=== PATIENT | male | born 1990 | race Caucasian/White ===

== ENCOUNTER 2020-05-08 19:54 | Emergency (ER) | payer OTHER ==
[~2020-05-08] VITALS: Ht 167.6 cm; Wt 97.5 kg
[2020-05-08] MEDS ORDERED: IV NORMAL SALINE 1000 ML BAG IV ONE ×2 (20:00→21:00)
[2020-05-08] MEDS ORDERED: HYDROMORPHONE 1 MG/1 ML DISP.SYRIN IV ONE ×5 (20:00→23:30)
[2020-05-08] MEDS ORDERED: ONDANSETRON 4 MG/2 ML VIAL IV ONE ×2 (20:00→23:30)
[2020-05-08] MEDS ORDERED: FAMOTIDINE. 20 MG/2 ML VIAL IV ONE ×2 (20:00→20:06)
[2020-05-08] MEDS ORDERED: ONDANSETRON 4 MG/2 ML VIAL ONE ×2 (20:06→23:32)
[2020-05-08] MEDS ORDERED: HYDROMORPHONE 1 MG/1 ML DISP.SYRIN ONE ×5 (20:06→23:30)
--- NOTE | 2020-05-08 20:10 | NUR ---
Patient BIB [facility] for c/o "constipation" no BM x 2 days. Patient A/Ox4. Speech is clear, speaks in complete sentences. Denies any GILES, no suspected acute neuro deficits at this time. Respiratory even and unlabored, no cough no sob. No cardiovascular distress noted, all pulses palpable, denies cp or palpitations. Patient c/o right sided abdominal pain, 10/10 localized, non-radiating. Patient retching during emetic episodes, denies any diarrhea. Denies any distress, denies hematuria or any dysuria. Patient in bed at lowest position, sr upx2, call light within reach. Fall and safety precautions implemented per protocol. Will continue to observe and monitor patient.
[2020-05-08 20:11] LABS: BASOPHILS % (AUTO) 0.2 % (0.0-2.0); EOSINOPHILS # (AUTO) 0.1 K/uL (0.0-0.7); EOSINOPHILS % (AUTO) 0.4 % (0.0-7.0); HEMOGLOBIN 16.4 g/dL (12.5-16.3); LYMPHOCYTES # (AUTO) 1.5 K/uL (20.0-40.0); LYMPHOCYTES % (AUTO) 6.8 % (20.5-51.5); MEAN CORPUSCULAR HEMOGLOBIN 27.2 uug (23.8-33.4); MEAN CORPUSCULAR HGB CONC 34 g/dL (32.5-36.3); MEAN CORPUSCULAR VOLUME 81.1 fL (73.0-96.2); MONOCYTES # (AUTO) 0.6 K/uL (2.0-10.0); MONOCYTES % (AUTO) 2.6 % (0.0-11.0); NEUTROPHILS # (AUTO) 20.2 K/uL (1.8-8.9); PLATELET COUNT (AUTO) 315 K/uL (152-348); RED BLOOD CELL COUNT(AUTO) 6.04 MIL/uL (4.06-5.63); WHITE BLOOD COUNT (AUTO) 22.5 K/uL (3.6-10.2)
[2020-05-08 20:18] LABS: POTASSIUM 3.7 mmol/L (3.5-5.1)
[2020-05-08 20:25] LABS: BILIRUBIN,DIRECT 0.3 mg/dL (0.0-0.2); BILIRUBIN,TOTAL 1.2 mg/dL (0.2-1.0); TOTAL PROTEIN, SERUM 8.6 g/dL (6.4-8.2)
[2020-05-08] MEDS ORDERED: IOPAMIDOL 15 ML VIAL IT ONE (20:44)
[2020-05-08] MEDS ORDERED: SWABABLE VALVE TRANSFER SET EA MC ONE (20:44)
[2020-05-08] MEDS ORDERED: IV NORMAL SALINE 250 ML IV ONE (20:44)
[2020-05-08] MEDS ORDERED: IOHEXOL 300MG/ML 100 ML INFUS..BTL ONE (20:45)
--- NOTE | 2020-05-08 20:47 | NUR ---
Patient transported to CT in stable condition.
--- NOTE | 2020-05-08 20:48 | NUR ---
Note undone in EDM - 05/08/20 at 2118 by LOPEZ Patient BIB [facility] for c/o "constipation" no BM x 2 days. Patient A/Ox4. Speech is clear, speaks in complete sentences. Denies any GILES, no suspected acute neuro deficits at this time. Respiratory even and unlabored, no cough no sob. No cardiovascular distress noted, all pulses palpable, denies cp or palpitations. Patient c/o right sided abdominal pain, 10/10 localized, non-radiating. Patient retching during emetic episodes, denies any diarrhea. Denies any distress, denies hematuria or any dysuria. Patient in bed at lowest position, sr upx2, call light within reach. Fall and safety precautions implemented per protocol. Will continue to observe and monitor patient.
--- NOTE | 2020-05-08 21:25 | NUR ---
US tech at bedside.
--- NOTE | 2020-05-08 21:34 | NUR ---
Pushpa REIS [facility] was given clinical information, and stated that she will dispatch a panel call. Awaiting call from .
--- NOTE | 2020-05-08 22:05 | NUR ---
Dr. Bergman EPR[facility] accepted patient. Awaiting call back for xfer info. Patient in bed at lowest position, IV fluids infusing well. Will continue to monitor patient.
--- NOTE | 2020-05-08 22:54 | NUR ---
[facility] [address] er information [id number] ETA [facility] transport. Patient will be coming to ER.
--- NOTE | 2020-05-08 23:01 | NUR ---
Report given to JOANA Hill at [facility]. Awaiting transport.
[2020-05-08 23:35] LABS: *BILIRUBIN,URIN NEGATIVE (NEGATIVE); *BLOOD, URINE NEGATIVE (NEGATIVE); *CLARITY,URINE CLEAR (CLEAR); *COLOR,URINE YELLOW (YELLOW); *KETONES,URINE NEGATIVE (NEGATIVE); *UROBILINOGEN,URINE 0.2 E.U./dl (NORMAL); LEUKOCYTE ESTERASE ,URINE NEGATIVE (NEGATIVE); NITRITE, URINE NEGATIVE (NEGATIVE); PH,URINE 5.5 (5.0-8.0); UGLUCOSE NEGATIVE (NEGATIVE)
--- NOTE | 2020-05-09 00:03 | NUR ---
Patient transported to [facility] ER in stable condition. Accepting physician is Dr. Darden. [facility] transport.
== END 2020-05-09 00:05 | disposition short-term general hospital (02) ==
LOC: ER 19:54
DX: K85.20 Alcohol induced acute pancreatitis without necrosis or infection (principal); Z72.89 Other problems related to lifestyle; K76.0 Fatty (change of) liver, not elsewhere classified; Z20.828 Contact with and (suspected) exposure to other viral communicable diseases
CPT/HCPCS: 36415; 74177; 76705; 80048; 80076; 81001; 83605 ×2; 83690; 85025; 85730; 87040 ×2; 87426; 96361; 96374 ×2; 96375; 96376; 99285; J1170 ×5; J2405 ×2; J3490; Q9967; J7030; J7050

== ENCOUNTER 2020-12-23 07:15 | Emergency (ER) | payer OTHER ==
[~2020-12-23] VITALS: Ht 165.1 cm; Wt 95.3 kg
[2020-12-23] MEDS ORDERED: PANTOPRAZOLE SODIUM 40 MG VIAL IV ONE (07:30)
[2020-12-23] MEDS ORDERED: IV NORMAL SALINE 1000 ML BAG IV ONE (07:30)
[2020-12-23] MEDS ORDERED: HYDROMORPHONE 1 MG/1 ML DISP.SYRIN IV ONE ×3 (07:30→10:30)
[2020-12-23] MEDS ORDERED: ONDANSETRON 4 MG/2 ML VIAL IV ONE ×3 (07:30→10:30)
[2020-12-23] MEDS ORDERED: PANTOPRAZOLE SODIUM 40 MG VIAL ONE (07:36)
[2020-12-23] MEDS ORDERED: HYDROMORPHONE 2 MG/1 ML DISP.SYRIN ONE ×3 (07:36→10:32)
[2020-12-23] MEDS ORDERED: ONDANSETRON 4 MG/2 ML VIAL ONE ×3 (07:36→10:33)
[2020-12-23 07:57] LABS: BASOPHILS % (AUTO) 0.3 % (0.0-2.0); EOSINOPHILS # (AUTO) 0.2 K/uL (0.0-0.7); EOSINOPHILS % (AUTO) 1.6 % (0.0-7.0); HEMOGLOBIN 14.9 g/dL (12.5-16.3); LYMPHOCYTES # (AUTO) 1.9 K/uL (20.0-40.0); LYMPHOCYTES % (AUTO) 19.9 % (20.5-51.5); MEAN CORPUSCULAR HGB CONC 34 g/dL (32.5-36.3); MEAN CORPUSCULAR VOLUME 79.9 fL (73.0-96.2); MONOCYTES # (AUTO) 0.7 K/uL (2.0-10.0); NEUTROPHILS # (AUTO) 6.8 K/uL (1.8-8.9); NEUTROPHILS % (AUTO) 71.2 % (38.5-71.5); PLATELET COUNT (AUTO) 209 K/uL (152-348); RED BLOOD CELL COUNT(AUTO) 5.51 MIL/uL (4.06-5.63); WHITE BLOOD COUNT (AUTO) 9.6 K/uL (3.6-10.2)
[2020-12-23 08:00] LABS: CREATININE 0.9 mg/dL (0.6-1.3); POTASSIUM 3.3 mmol/L (3.5-5.1)
[2020-12-23 08:07] LABS: BILIRUBIN,DIRECT 0.3 mg/dL (0.0-0.2); BILIRUBIN,TOTAL 1.2 mg/dL (0.2-1.0); TOTAL PROTEIN, SERUM 8.1 g/dL (6.4-8.2)
[2020-12-23 08:55] LABS: *KETONES,URINE NEGATIVE (NEGATIVE); *UROBILINOGEN,URINE 0.2 E.U./dl (NORMAL); LEUKOCYTE ESTERASE ,URINE NEGATIVE (NEGATIVE); NITRITE, URINE NEGATIVE (NEGATIVE); PH,URINE 5.5 (5.0-8.0); UGLUCOSE NEGATIVE (NEGATIVE)
[2020-12-23 09:12] LABS: *BILIRUBIN,URIN 1+ (NEGATIVE); *BLOOD, URINE SMALL (NEGATIVE)
[2020-12-23 09:13] LABS: *CLARITY,URINE SLIGHTLY CLOUDY (CLEAR); *COLOR,URINE YELLOW (YELLOW); MUCUS,URINE MODERATE /LPF (0-FEW)
[2020-12-23 09:15] LABS: BACTERIA,URINE NONE SEEN /HPF (NONE SEEN); RBC,URINE 0-3 /HPF (0-3); SQUAMOUS EPITHELIAL CELL,UR NONE SEEN /HPF (NONE SEEN)
--- NOTE | 2020-12-23 11:02 | NUR ---
lackey ambualce at bedside to transfer the pt to [facility], admitting md is nas. pt abdi shoemaker.
== END 2020-12-23 11:00 | disposition short-term general hospital (02) ==
LOC: ER 07:15
DX: R10.13 Epigastric pain (principal); R11.2 Nausea with vomiting, unspecified; Z20.822 Contact with and (suspected) exposure to COVID-19
CPT/HCPCS: 36415; 74176; 80048; 80076; 81001; 83690; 85025; 87426; 96361; 96374; 96375; 96376; 99284; C9113; J1170 ×3; J2405 ×3; A4663

== ENCOUNTER 2021-02-18 01:17 | Emergency (ER) | payer OTHER ==
[~2021-02-18] VITALS: Ht 167.6 cm; Wt 93.0 kg
[2021-02-18] MEDS ORDERED: IV NORMAL SALINE 1000 ML BAG IV ONE (01:45)
[2021-02-18] MEDS ORDERED: MORPHINE SULFATE 4 MG/1 ML DISP.SYRIN IV ONE ×2 (01:45→02:45)
[2021-02-18] MEDS ORDERED: ONDANSETRON 4 MG/2 ML VIAL IV ONE (01:45)
--- NOTE | 2021-02-18 02:00 | NUR ---
Patient presents to ED from home for severe epigastric pain. Pain started 5 hours ago and has gotten progressively worse. It is non-radiating and described as pressure. Patient has not taken anything to help the pain besides some maria luz to try and alleviate some "gas" if that is what it is. Patient is A&Ox4. Cooperative and pleasant. Sinus Rhythm on the monitor. No chest pain, no diaphoresis, no chills, afebrile. No reported cardiovascular disorders. Lung sounds normal. Saturations >94% on room air. No SOB. No dyspnea. No labored breathing. GI/: One episode of emesis here in the ED and two reportedly at home - no blood present. No diarrhea or constipation. Does report a lack of apetite throughout the day.
[2021-02-18] MEDS ORDERED: MORPHINE SULFATE 4 MG/1 ML DISP.SYRIN ONE ×2 (02:10→02:56)
[2021-02-18] MEDS ORDERED: ONDANSETRON 4 MG/2 ML VIAL ONE (02:10)
[2021-02-18 02:13] LABS: BASOPHILS # (AUTO) 0.1 K/uL (0.0-8.0); BASOPHILS % (AUTO) 0.7 % (0.0-2.0); EOSINOPHILS # (AUTO) 0.2 K/uL (0.0-0.7); EOSINOPHILS % (AUTO) 2.5 % (0.0-7.0); HEMATOCRIT 41.1 % (36.7-47.1); HEMOGLOBIN 14.3 g/dL (12.5-16.3); LYMPHOCYTES # (AUTO) 2.3 K/uL (20.0-40.0); LYMPHOCYTES % (AUTO) 26.6 % (20.5-51.5); MEAN CORPUSCULAR HEMOGLOBIN 27.9 uug (23.8-33.4); MEAN CORPUSCULAR HGB CONC 35 g/dL (32.5-36.3); MEAN CORPUSCULAR VOLUME 80.1 fL (73.0-96.2); MONOCYTES # (AUTO) 0.7 K/uL (2.0-10.0); NEUTROPHILS # (AUTO) 5.5 K/uL (1.8-8.9); NEUTROPHILS % (AUTO) 62.2 % (38.5-71.5); PLATELET COUNT (AUTO) 234 K/uL (152-348); RED BLOOD CELL COUNT(AUTO) 5.13 MIL/uL (4.06-5.63); WHITE BLOOD COUNT (AUTO) 8.8 K/uL (3.6-10.2)
[2021-02-18 02:18] LABS: CREATININE 0.8 mg/dL (0.6-1.3)
[2021-02-18 02:19] LABS: ETHANOL < 3 MG/DL (0-0)
[2021-02-18 02:24] LABS: BILIRUBIN,DIRECT 0.1 mg/dL (0.0-0.2); BILIRUBIN,TOTAL 0.5 mg/dL (0.2-1.0); TOTAL PROTEIN, SERUM 7.8 g/dL (6.4-8.2)
[2021-02-18] MEDS ORDERED: HYDROMORPHONE HCL 2 MG TABLET PO ONE (04:30)
[2021-02-18] MEDS ORDERED: HYDROMORPHONE 1 MG/1 ML DISP.SYRIN IV ONE ×2 (04:30→07:45)
[2021-02-18] MEDS ORDERED: HYDROMORPHONE 1 MG/1 ML DISP.SYRIN ONE ×2 (04:40→07:34)
[2021-02-18] MEDS ORDERED: PANTOPRAZOLE SODIUM 40 MG VIAL ONE (04:53)
[2021-02-18] MEDS ORDERED: PANTOPRAZOLE SODIUM 40 MG VIAL IV ONE (05:00)
[2021-02-18 05:12] LABS: *BILIRUBIN,URIN NEGATIVE (NEGATIVE); *BLOOD, URINE NEGATIVE (NEGATIVE); *CLARITY,URINE CLEAR (CLEAR); *COLOR,URINE YELLOW (YELLOW); *KETONES,URINE NEGATIVE (NEGATIVE); *UROBILINOGEN,URINE 0.2 E.U./dl (NORMAL); LEUKOCYTE ESTERASE ,URINE NEGATIVE (NEGATIVE); NITRITE, URINE NEGATIVE (NEGATIVE); PH,URINE 5.5 (5.0-8.0); UGLUCOSE NEGATIVE (NEGATIVE)
[2021-02-18 05:19] LABS: BACTERIA,URINE NONE SEEN /HPF (NONE SEEN); RBC,URINE NONE SEEN /HPF (0-3); SQUAMOUS EPITHELIAL CELL,UR NONE SEEN /HPF (NONE SEEN); WBC,URINE 0-3 /HPF (0-3)
[2021-02-18] MEDS ORDERED: IOHEXOL 300MG/ML 100 ML INFUS..BTL ONE (06:45)
[2021-02-18] MEDS ORDERED: IV NORMAL SALINE 250 ML IV ONE (06:45)
[2021-02-18] MEDS ORDERED: SWABABLE VALVE TRANSFER SET EA MC ONE (06:45)
--- NOTE | 2021-02-18 06:53 | NUR ---
Patient down to CT at this time
--- NOTE | 2021-02-18 07:23 | NUR ---
PT CAME BACK FROM CT SCAN DEPARTMENT. PT IS RESTING IN BED.
[2021-02-18] MEDS ORDERED: FAMO-132 PO (08:20)
[2021-02-18] MEDS ORDERED: ONDA4TAB5 PO (08:20)
--- NOTE | 2021-02-18 08:27 | NUR ---
PT WAS D/C'd TO HOME AFTER DR FELIX RE-EVALUATION. D/C INSTRUCTIONS GIVEN TO THE PT BY DR FELIX. PT VERBALISED FULL UNDERSTANDING. PT DENIES PAIN. NO NAUSEA, NO DIZINNES, GAIT IS TABLE. PT LEFT HOSPITAL WITH HIS .
[2021-02-18 08:29] VITALS: BP 141/73
== END 2021-02-18 08:30 | disposition home or self-care (01) ==
LOC: ER 01:20
DX: R10.13 Epigastric pain (principal); Z87.891 Personal history of nicotine dependence; R16.2 Hepatomegaly with splenomegaly, not elsewhere classified; R59.1 Generalized enlarged lymph nodes; K42.9 Umbilical hernia without obstruction or gangrene; K40.20 Bilateral inguinal hernia, without obstruction or gangrene, not specified as recurrent; R03.0 Elevated blood-pressure reading, without diagnosis of hypertension
CPT/HCPCS: 36415; 74177; 80048; 80076; 80320; 81001; 83690; 85025; 93005; 96361; 96374; 96375; 96376; 99285; C9113; J1170 ×2; J2270 ×2; J2405; Q9967; A4663; G0480; J7030; J7050

== ENCOUNTER 2021-07-24 02:52 | Emergency (ER) | payer OTHER ==
[~2021-07-24] VITALS: Ht 167.6 cm; Wt 88.5 kg
[~2021-07-24 02:52] MED LIST: FAMO-132 PO; ONDA4TAB5 PO
--- NOTE | 2021-07-24 03:10 | NUR ---
PATIENT WAS MSE BY DR OCONNOR IN ROOM 05A.
[2021-07-24] MEDS ORDERED: IV NORMAL SALINE 1000 ML BAG IV ONE (03:15)
[2021-07-24] MEDS ORDERED: PROCHLORPERAZINE EDISYLATE 10 MG/2 ML VIAL IV ONE (03:15)
[2021-07-24] MEDS ORDERED: HYDROMORPHONE 1 MG/1 ML DISP.SYRIN IV ONE ×2 (03:15→04:30)
[2021-07-24] MEDS ORDERED: IV NS 1000 ML 1,000 ML IV ONE ×2 (03:15→04:30)
[2021-07-24] MEDS ORDERED: PROCHLORPERAZINE EDISYLATE 10 MG/2 ML VIAL ONE (03:21)
[2021-07-24] MEDS ORDERED: HYDROMORPHONE 2 MG/1 ML DISP.SYRIN ONE ×2 (03:21→05:11)
[2021-07-24 03:32] LABS: HEMATOCRIT 44.1 % (36.7-47.1); MEAN CORPUSCULAR HEMOGLOBIN 27.7 uug (23.8-33.4); MEAN CORPUSCULAR VOLUME 79.7 fL (73.0-96.2); PLATELET COUNT (AUTO) 268 K/uL (152-348)
[2021-07-24 03:49] LABS: BILIRUBIN,DIRECT 0.3 mg/dL (0.0-0.2); BILIRUBIN,TOTAL 1.4 mg/dL (0.2-1.0); POTASSIUM 3.9 mmol/L (3.5-5.1); TOTAL PROTEIN, SERUM 8.8 g/dL (6.4-8.2)
[2021-07-24] MEDS ORDERED: IOHEXOL 300MG/ML 100 ML INFUS..BTL ONE (05:27)
[2021-07-24] MEDS ORDERED: IV NORMAL SALINE 250 ML IV ONE (05:27)
[2021-07-24] MEDS ORDERED: SWABABLE VALVE TRANSFER SET EA MC ONE (05:27)
[2021-07-24] MEDS ORDERED: OXYC-128 PO ×2 (06:09→06:11)
[2021-07-24] MEDS ORDERED: RABE20TA18 PO (06:09)
[2021-07-24] MEDS ORDERED: AMOX500C2 PO (06:09)
[2021-07-24] MEDS ORDERED: CLAR-45 PO (06:09)
[2021-07-24] MEDS ORDERED: PROC-11 PO (06:09)
[2021-07-24] MEDS ORDERED: TINI500T18 PO (06:09)
--- NOTE | 2021-07-24 06:15 | NUR ---
DR OCONNOR SPOKE WITH PATIENT BING JACOBS.
--- NOTE | 2021-07-24 06:26 | NUR ---
Patient discharged to home in stable condition. Written and verbal after care instructions given. Patient verbalizes understanding of instructions. Stressed follow up or return to ER for worsening s/s.
[2021-07-24 06:29] VITALS: BP 110/62
== END 2021-07-24 06:33 | disposition home or self-care (01) ==
LOC: ER 02:55
DX: K29.70 Gastritis, unspecified, without bleeding (principal); K76.0 Fatty (change of) liver, not elsewhere classified; Z20.822 Contact with and (suspected) exposure to COVID-19; Z87.19 Personal history of other diseases of the digestive system; R00.0 Tachycardia, unspecified; D72.829 Elevated white blood cell count, unspecified
CPT/HCPCS: 36415; 74177; 76705; 80048; 80076; 83605; 83690; 85025; 86677 ×2; 87426; 93005; 96361; 96374; 96375; 96376; 99285; J0780; J1170 ×2; Q9967; A4663; J7030; J7050

== ENCOUNTER 2022-09-06 13:54 | Emergency (ER) | payer OTHER ==
[~2022-09-06] VITALS: Ht 167.6 cm; Wt 95.3 kg
[~2022-09-06 13:54] MED LIST changes: +AMOX500C2 PO; +CLAR-45 PO; +OXYC-128 PO; +PROC-11 PO; +RABE20TA18 PO; +TINI500T18 PO
--- NOTE | 2022-09-06 14:30 | NUR ---
PT RESTING ON ED GURANDREW; STATES PAIN ON RT FLANK 05/28; SHARP NON RADIATING
[2022-09-06 15:46] LABS: *BILIRUBIN,URIN NEGATIVE (NEGATIVE); *BLOOD, URINE NEGATIVE (NEGATIVE); *CLARITY,URINE CLEAR (CLEAR); *COLOR,URINE YELLOW (YELLOW); *KETONES,URINE NEGATIVE (NEGATIVE); *UROBILINOGEN,URINE 0.2 E.U./dl (NORMAL); LEUKOCYTE ESTERASE ,URINE NEGATIVE (NEGATIVE); NITRITE, URINE NEGATIVE (NEGATIVE); PH,URINE 6.5 (5.0-8.0); UGLUCOSE NEGATIVE (NEGATIVE)
[2022-09-06] MEDS ORDERED: ACETAMINOPHEN ES 500 MG TABLET ONE (15:59)
[2022-09-06] MEDS ORDERED: KETOROLAC TROMETHAMINE 15 MG INJ ONE (15:59)
[2022-09-06] MEDS ORDERED: KETOROLAC TROMETHAMINE 15 MG INJ IVP ONE (16:00)
[2022-09-06] MEDS ORDERED: IV NORMAL SALINE 1000 ML BAG IV ONE (16:00)
[2022-09-06] MEDS ORDERED: ACETAMINOPHEN ES 500 MG TABLET PO ONE (16:00)
[2022-09-06 16:17] LABS: HEMATOCRIT 38.7 % (36.7-47.1); MEAN CORPUSCULAR HEMOGLOBIN 26.5 uug (23.8-33.4); MEAN CORPUSCULAR VOLUME 79.1 fL (73.0-96.2); PLATELET COUNT (AUTO) 239 K/uL (152-348)
--- NOTE | 2022-09-06 16:25 | NUR ---
pt to ct scan with the user experience architect
[2022-09-06 16:33] LABS: ALANINE AMINOTRANSFERASE 59 U/L (16-63); ALKALINE PHOSPHATASE 75 U/L (50-136); ASPARTATE AMINOTRANSFERASE 16 U/L (15-37); BILIRUBIN,DIRECT 0.2 mg/dL (0.0-0.2); BILIRUBIN,TOTAL 0.5 mg/dL (0.2-1.0); CARBON DIOXIDE 30 mmol/L (21-32); CHLORIDE 102 mmol/L (98-107); CREATININE 0.7 mg/dL (0.6-1.3); GLUCOSE 102 mg/dL (74-106); LIPASE 66 U/L (73-393); TOTAL PROTEIN, SERUM 7.6 g/dL (6.4-8.2); UREA NITROGEN, BLOOD 11 mg/dL (7-18)
[2022-09-06] MEDS ORDERED: MORPHINE SULFATE 4 MG/1 ML DISP.SYRIN ONE (16:46)
[2022-09-06] MEDS ORDERED: MORPHINE SULFATE 4 MG/1 ML DISP.SYRIN IV ONE (17:00)
[2022-09-06] MEDS ORDERED: HYDROMORPHONE 1 MG/1 ML DISP.SYRIN ONE (18:28)
[2022-09-06] MEDS ORDERED: HYDROMORPHONE 1 MG/1 ML DISP.SYRIN IV ONE (18:45)
[2022-09-06] MEDS ORDERED: CYCL5TAB PO (19:10)
--- NOTE | 2022-09-06 19:16 | NUR ---
AMEENA ROWE RN
--- NOTE | 2022-09-06 19:22 | NUR ---
Patient discharged to home in stable condition. Written and verbal after care instructions given. Instructed patient not drive. Patient verbalizes understanding of instructions. Stressed follow up or return to ER for worsening s/s.
[2022-09-06 19:27] VITALS: BP 125/71
== END 2022-09-06 19:28 | disposition home or self-care (01) ==
LOC: ER 13:54
DX: N20.0 Calculus of kidney (principal); M54.9 Dorsalgia, unspecified; D72.829 Elevated white blood cell count, unspecified
CPT/HCPCS: 99285; 74176; 96374; 71045; 96361; 96375; 80076; 80048; 81003; 83690; 85025; 36415; 83605; 87040; J1885; J1170; J2270; J7040; A4663; A9150